=== PATIENT | female | born 1945 | race Caucasian/White ===

== ENCOUNTER 2016-10-17 10:36 | Day surgery (SDC) | payer MEDICARE ==
[~2016-10-17] VITALS: Ht 160 cm; Wt 75.0 kg
[~2016-10-17 10:36] MED LIST: ASPI-628 PO; CHOL200020 PO; ESZO2TAB38 PO; EZET10TA PO; EZET1TAB7 PO; FENO145T19 PO; LEVO75CA2 PO; LOSA50TA37 PO; MELA1TAB21 PO; MULT-1065 PO; NITR0.4T SL; OMEP-113 PO; RES15 PO; SIMV40TA5 PO
[2016-10-17] MEDS ORDERED: Sodium Chloride LOK Flush 10 mL Syringe IV PRN (10:45)
[2016-10-17] MEDS ORDERED: 0.9% Sodium Chloride 1,000 ML IV PRN (10:45)
[2016-10-17] MEDS ORDERED: fentaNYL-PF 50 mCg/mL 2 mL Inj IVPUSH PRN (10:45)
[2016-10-17 11:13] VITALS: BP 119/73; PULSE 70; RESP 16; O2SAT 96
--- NOTE | 2016-10-17 13:28 | PCM.ENDCOL ---
Colonoscopy Date of Service: Oct 17, 2016 Physician Emery Spivey MD Pre Procedure Diagnosis: Abdominal pain Post Procedure Dx & Findings: Few diverticula Procedure Colonoscopy PROCEDURE IN DETAIL: Prep adequate Withdrawal time 11 minutes After unremarkable rectal examination the Olympus video colonoscope was inserted patient's anal canal and was advanced to cecum. Landmarks were identified including the ileocecal valve and appendiceal orifice. Scope was withdrawn systematically. Visualized colonic mucosa showed healthy shiny mucosa with normal healthy-appearing vasculature. In the sigmoid colon there were a few small diverticuli. In the rectum retroflexion was done which showed hemorrhoids. Anal canal was inspected carefully on the way out and hemorrhoids noted. Impression Diverticuli Hemorrhoids Recommendation Repeat colonoscopy in 5 years due to personal history of colon polyps Diverticular diet Presedation Assessment Risks and Benefits Informed consent was obtained from the patient after all risks and benefits including but not limited to drug reaction, infection, pain, bleeding, perforation, as well as alternatives were discussed. Patient monitoring Continuous pulse oximetry, cardiac monitoring, blood pressure monitoring, IV access, and oxygen at 2L per nasal cannula. Periprocedural Fentanyl: Fentanyl 125mcg Incrementally Midazolam: Midazolam 6mg Incrementally Complications There were no periprocedural complications identified. Post Procedure Plan Post Procedure Recommendations 1. Restrict activities today. 2. Resume normal activities in the morning. 3. Resume medications. 4. Patient informed of normal post procedure side effects as bloating, drowsiness, blood streaking in the stool. 5. average risk CRCS. If colon polyps come back as: -Hyperplastic- can repeat colonoscopy in 10 years -Tubular adenoma- repeat colonoscopy in 5 years -Tubulovillous/villous adenoma- repeat colonoscopy in 3 years -If any dysplasia- return to clinic as soon as possible 6. Please don't hesitate to call me with any questions. Emery Spivey MD Oct 17, 2016 13:28
[2016-10-17 13:29] VITALS: BP 109/68; PULSE 72; RESP 16; O2SAT 92
[2016-10-17 13:39] VITALS: BP 101/54; PULSE 71; RESP 16; O2SAT 92
[2016-10-17 13:50] VITALS: BP 118/78; PULSE 83; RESP 16; O2SAT 95
== END 2016-10-17 23:59 | disposition home or self-care (01) ==
LOC: END 10:36
PROVIDERS: ATTEND Internal Medicine
DX: R10.9 Unspecified abdominal pain (principal); K64.9 Unspecified hemorrhoids; I10 Essential (primary) hypertension; K21.9 Gastro-esophageal reflux disease without esophagitis; E03.9 Hypothyroidism, unspecified; K57.30 Diverticulosis of large intestine without perforation or abscess without bleeding; Z79.82 Long term (current) use of aspirin